=== PATIENT | male | born 1940 | race Caucasian/White ===

== ENCOUNTER 2021-05-15 02:41 | Emergency (ER) | payer MEDICARE, BC ==
[2021-05-15 02:50] VITALS: RESP 16
--- NOTE | 2021-05-15 03:31 | CT ---
EXAMINATION TYPE: CT brain graham jimenez con DATE OF EXAM: 05/15/2021 COMPARISON: None HISTORY: fall CT DLP: [id number] mGycm Automated exposure control for dose reduction was used. Images obtained of the brain and cervical spine without contrast. There is cerebral atrophy. There is no mass effect nor midline shift. There is patchy hypodensity in the periventricular white matter. There is no evidence of intracranial hemorrhage. There is bilateral frontal scalp hematomas. There is no evidence of skull fracture. Skull base is intact. There is norm al aeration of the mastoid sinuses. The cervical vertebra have fairly normal alignment. There is no compression fracture. There is a mini mal degenerative subluxation at C5-6. Facet joints are intact. There is mild hypertrophic facet arthr opathy. Prevertebral soft tissues are intact. There is no evidence of cervical spine fracture. The marcos ng apices are clear. IMPRESSION: Minor degenerative changes in the cervical spine. No fracture. Cerebral atrophy and chronic small vessel ischemia. No acute intracranial abnormality. Frontal scalp hematoma. Mildly displaced nasal bone fracture to the right side.
[2021-05-15] MEDS ORDERED: TOPICAL SKIN ADHESIVE 1 EACH AMP TOPICAL ONE (04:38)
[2021-05-15] MEDS ORDERED: DIPH,PERTUS(ACELL)TETVAC-LF 0.5 ML VIAL IM ONE (05:49)
--- NOTE | 2021-05-15 05:52 | ED ---
Fall HPI - General Chief Complaint: Fall Stated Complaint: Fall Time Seen by Provider: 05/15/21 02:51 Source: EMS Mode of arrival: EMS - History of Present Illness MD Complaint: fall Onset/Timin -: hour(s) Fall From: standing When Fall Occurred: just prior to arrival Fall Witnessed: yes, by living facility staff Place Fall Occurred: custodial/SNF Loss of Consciousness: none Prolonged Down Time?: no Location: head Severity: mild Context: tripped/slipped Associated Symptoms: denies - Related Data Allergies Allergy/AdvReac Type Severity Reaction Status Date / Time No Known Allergies Allergy Verified 05/15/21 02:54 Review of Systems ROS Statement: Those systems with pertinent positive or pertinent negative responses have been documented in the HPI. ROS Other: All systems not noted in ROS Statement are negative. Constitutional: Denies: weakness Eyes: Denies: vision change Respiratory: Denies: cough, dyspnea Cardiovascular: Denies: chest pain, palpitations Gastrointestinal: Denies: abdominal pain, nausea, vomiting Skin: Denies: rash Neurological: Denies: headache Past Medical History Past Medical History: Atrial Fibrillation, Hyperlipidemia, Hypertension Additional Past Medical History / Comment(s): Parkinson's Disease, Chronic Kidney Disease stage, Legionnaire's Disease, Hyperkalemia, Anxiety, Peripheral Vascular disease History of Any Multi-Drug Resistant Organisms: None Reported Past Surgical History: Pacemaker Past Psychological History: Anxiety Smoking Status: Former smoker Past Alcohol Use History: None Reported Past Drug Use History: None Reported General Exam General appearance: alert, in no apparent distress Eye exam: Present: normal appearance. Absent: scleral icterus, conjunctival injection Neck exam: Present: full ROM. Absent: tenderness Respiratory exam: Present: normal lung sounds bilaterally. Absent: respiratory distress, wheezes, rales, rhonchi, stridor Cardiovascular Exam: Present: regular rate, normal rhythm, normal heart sounds. Absent: systolic murmur, diastolic murmur, rubs, gallop GI/Abdominal exam: Present: soft. Absent: distended, tenderness Extremities exam: Present: normal inspection, normal capillary refill. Absent: pedal edema, calf tenderness Back exam: Present: normal inspection. Absent: vertebral tenderness Neurological exam: Present: alert. Absent: motor sensory deficit Skin exam: Present: warm, dry, other (Small laceration forehead). Absent: rash Course Vital Signs 05/15/21 05/15/21 02:43 06:15 Temperature 97.8 F 98.0 F Pulse Rate 76 74 Respiratory 16 16 Rate Blood Pressure 164/80 152/62 O2 Sat by Pulse 94 L 99 Oximetry Procedures - Laceration Laceration #1 Consent Obtained: verbal consent Indication: laceration Site: face Description: linear Size of Sutures: other (Skin glue) Disposition Clinical Impression: Fall, Laceration of face Disposition: HOME SELF-CARE Condition: Good Instructions (If sedation given, give patient instructions): Laceration (ED), Fall Prevention for Older Adults (ED), Skin Adhesive Care (ED) Is patient prescribed a controlled substance at d/c from ED?: No Referrals: Bret Shirley MD [Primary Care Provider] - 1-2 days
[2021-05-15 06:16] VITALS: BP 152/62; PULSE 74; TEMP 98
== END 2021-05-15 06:15 | disposition home or self-care (01) ==
LOC: EC 02:41
DX: S01.81XA Laceration without foreign body of other part of head, initial encounter (principal); I10 Essential (primary) hypertension; I48.91 Unspecified atrial fibrillation; E78.5 Hyperlipidemia, unspecified; Z87.891 Personal history of nicotine dependence; W01.0XXA Fall on same level from slipping, tripping and stumbling without subsequent striking against object, initial encounter; Y92.129 Unspecified place in nursing home as the place of occurrence of the external cause
CPT/HCPCS: 70450; 72125; 90471; 90715; 99284